=== PATIENT | female | born 1950 ===

== ENCOUNTER 2023-03-20 15:15 | Emergency (ER) | payer SELFPAY ==
[2023-03-20 15:22] VITALS: BP 153/86; PULSE 92; RESP 18; TEMP 36.8; O2SAT 96; BMI 21.7
== END 2023-03-20 16:27 | disposition left against medical advice (07) ==
PROVIDERS: Emergency Provider Student in an Organized Health Care Education/Training Program
DX: Z53.21 Procedure and treatment not carried out due to patient leaving prior to being seen by health care provider (principal)